=== PATIENT | male | born 1990 | race Caucasian/White ===

== ENCOUNTER 2024-10-05 21:28 | Emergency (ER) | payer OTHER ==
[2024-10-05 21:34] VITALS: BP 128/90; PULSE 73; RESP 18; TEMP 98.9; BMI 24.4
[2024-10-05] MEDS ORDERED: KETOROLAC TROMETHAMINE 60 MG/2 ML VIAL ONE (21:47)
[2024-10-05] MEDS: KETOROLAC TROMETHAMINE 60 MG/2 ML VIAL IM ONE (21:51)
== END 2024-10-05 22:59 | disposition home or self-care (01) ==
LOC: FER 21:28
PROC: 0RSJXZZ Reposition Right Shoulder Joint, External Approach (ICD-10-PCS; principal; 2024-10-05)
PROC: 3E0233Z Introduction of Anti-inflammatory into Muscle, Percutaneous Approach (ICD-10-PCS; 2024-10-05)
DX: M24.311 Pathological dislocation of right shoulder, not elsewhere classified (principal); W18.43XA Slipping, tripping and stumbling without falling due to stepping from one level to another, initial encounter
CPT/HCPCS: 73030-TC-RT-FY; 99284-25